=== PATIENT | male | born 1995 | race Caucasian/White ===

== ENCOUNTER 2019-08-09 09:41 | Emergency (ER) | payer OTHER ==
[2019-08-09 10:04] VITALS: BP 114/66
--- NOTE | 2019-08-09 10:54 | UC ---
Knee Pain HPI - HPI Summary HPI Summary: 24-year-old male presents with 10 day history of right knee pain. Reports no specific injury however patient does practice [email or web address] and states he was recently training to learn some submission moves that was meant to apply lateral pressure to the knee. States pain is located to the medial aspect of the knee. Able to walk and bear weight without pain however does state the pain worsens with any type of lateral movement or flexion. He also noted a great deal of pain when he attempted to do some weight lifting the other day. Denies any numbness or tingling. - History of Current Complaint Chief Complaint: UCLowerExtremity Stated Complaint: KNEE INJURY Time Seen by Provider: 08/09/19 10:06 Hx Obtained From: Patient Pain Intensity: 5 - Allergies/Home Medications Allergies/Adverse Reactions: Allergies Allergy/AdvReac Type Severity Reaction Status Date / Time No Known Allergies Allergy Verified 08/09/19 10:04 PMH/Surg Hx/FS Hx/Imm Hx Previously Healthy: Yes - Denies significant PMH - Surgical History Surgical History: None - Family History Known Family History: Positive: None - Social History Occupation: Student Lives: Dormitory/Roommates Alcohol Use: Occasionally Substance Use Type: Marijuana Smoking Status (MU): Former Smoker When Did the Patient Quit Smoking/Using Tobacco: aug 2018 Review of Systems All Other Systems Reviewed And Are Negative: Yes Constitutional: Positive: Negative Skin: Negative: Bruising Respiratory: Positive: Negative Cardiovascular: Positive: Negative Gastrointestinal: Positive: Negative Genitourinary: Positive: Negative Motor: Negative: Weakness Neurovascular: Negative: Decreased Sensation Musculoskeletal: Positive: Other: - See HPI. Negative: Decreased ROM, Edema Neurological: Positive: Negative Is Patient Immunocompromised?: No Physical Exam - Summary Physical Exam Summary: GENERAL APPEARANCE: Well developed, well nourished, alert and cooperative, and appears to be in no acute distress. CARDIAC: Normal S1 and S2. No S3, S4 or murmurs. Rhythm is regular. There is no peripheral edema, cyanosis or pallor. Extremities are warm and well perfused. Capillary refill is less than 2 seconds. Peripheral pulses intact. LUNGS: Clear to auscultation without rales, rhonchi, wheezing or diminished breath sounds. ABDOMEN: Positive bowel sounds. Soft, nondistended, nontender. No guarding or rebound. No masses or hepatosplenomegally. MUSKULOSKELETAL: ROM intact to all extremities. No joint erythema or tenderness. Normal muscular development. Normal gait. EXTREMITIES: Tenderness to the medial aspect of the right knee without erythema , edema, ecchymosis, or gross deformity. Full ROM. No laxitiy. Circulation and sensation intact. SKIN: Skin normal color, texture and turgor with no lesions or eruptions. Triage Information Reviewed: Yes Vital Signs: Initial Vital Signs Temp 98.4 F 08/09/19 09:58 Pulse 91 08/09/19 09:58 Resp 18 08/09/19 09:58 BP 114/66 08/09/19 09:58 Pulse Ox 97 08/09/19 09:58 Vital Signs Reviewed: Yes Diagnostics - Radiology No standard instances Radiology Interpretation Completed By: Radiologist Summary of Radiographic Findings: Order Information: KNEE RIGHT 4+ VWS Indication: Medial RIGHT knee pain following wrestling injury. Comparison: None. Technique: RIGHT knee: AP, tunnel, lateral, sunrise views. Report: Negative for joint effusion, fracture, or malalignment. Preserved joint spaces. Unremarkable soft tissue contours. IMPRESSION: #. Negative exam. Knee Pain Course/Dx - Course Course Of Treatment: 24-year-old male presents with 10 day history of right knee pain. Reports no specific injury however patient does practice [employer] and states he was recently training to learn some submission moves that was meant to apply lateral pressure to the knee. States pain is located to the medial aspect of the knee. Able to walk and bear weight without pain however does state the pain worsens with any type of lateral movement or flexion. He also noted a great deal of pain when he attempted to do some weight lifting the other day. Denies any numbness or tingling. Afebrile. Vital signs stable. Patient had tenderness to the medial aspect of the right knee without erythema, edema, ecchymosis, or gross deformity, full ROM, no laxitiy with circulation and sensation intact. X-ray showed no acute osseous injury. Reviewed results with the patient and discussed that I suspect he may have a soft tissue injury most likely to the medial collateral ligament. Recommending conservative treatment for acute right knee pain including [id number] analgesics and RICE. He is to follow-up with orthopedic surgery in 5-7 days for further evaluation and treatment. Anticipatory guidance and warning symptoms were reviewed with the patient. Verbalizes understanding and agrees with plan of care. - Differential Dx/Diagnosis Differential Diagnosis/HQI/PQRI: Bursitis, Fracture (Closed), Internal Derangement Of Knee, Sprain Provider Diagnosis: Right knee pain Discharge ED - Sign-Out/Discharge Documenting (check all that apply): Patient Departure All imaging exams completed and their final reports reviewed: Yes - Discharge Plan Condition: Stable Disposition: HOME Patient Education Materials: Knee Pain (ED) Referrals: No Primary Care Phys,NOPCP [Primary Care Provider] - Adal Le MD [Medical Doctor] - 5 Days Additional Instructions: The x-ray performed in the clinic today showed no evidence of a fracture. I suspect that you may have a injury of the soft tissues (ligaments) of the knee. Rest the knee as much as possible. Avoid strenuous activities or activities that cause pain. Use and ARDEN wrap or compression sleeve to help manage any swelling. Apply ice to the affected area for 15-20 minutes at least 4 times a day to help with the pain and swelling. Elevate the leg to help reduce swelling. Take acetaminophen (Tylenol) or ibuprofen (Advil, Motrin) according to directions as needed for pain. Follow up with orthopedic surgery in 5-7 days for further evaluation and treatment. Call for appointment. Seek immediate medical attention if you have severe pain not managed with pain medication, you are unable to walk or bear any weight, develop numbness or tingling in the leg, foot, or toes, or have any worsening of symptoms. - Billing Disposition and Condition Condition: STABLE Disposition: Home
== END 2019-08-09 11:00 | disposition home or self-care (01) ==
LOC: UCEAST 09:41
DX: M25.561 Pain in right knee (principal); Z87.891 Personal history of nicotine dependence
CPT/HCPCS: 99211; G0463